=== PATIENT | male | born 1960 | race Caucasian/White ===

== ENCOUNTER 2019-12-15 18:24 | Emergency (ER) | payer BC ==
--- NOTE | 2019-12-15 18:39 | Emergency Department Report ---
Blank Doc - Documentation Documentation: 59-year-old male that presents with chest pain and SOB. This initial assessment/diagnostic orders/clinical plan/treatment(s) is/are subject to change based on patient's health status, clinical progression and re- assessment by fellow clinical providers in the ED. Further treatment and workup at subsequent clinical providers discretion. Patient/guardians urged not to elope from the ED as their condition may be serious if not clinically assessed and managed. Initial orders include: 1- Patient sent to MAIN ED for further evaluation and treatment 2- cardiac workup
[2019-12-15 19:02] LABS: Basophils % (Auto) 0.9 % (0.0-1.8); Eosinophils % (Auto) 0.4 % (0.0-4.3); Hematocrit 49.5 % (35.5-45.6); Hemoglobin 17.3 gm/dl (11.8-15.2); Lymphocytes # (Auto) 1.5 K/mm3 (1.2-5.4); Lymphocytes % (Auto) 27.1 % (13.4-35.0); Mean Corpuscular HGB Conc 35 % (32-34); Mean Corpuscular Volume 85 fl (84-94); Monocytes # (Auto) 0.7 K/mm3 (0.0-0.8); Monocytes % (Auto) 13.3 % (0.0-7.3); Platelet Count 254 K/mm3 (140-440); Red Blood Count 5.82 M/mm3 (3.65-5.03); Red Cell Distribution Width 12.5 % (13.2-15.2)
[2019-12-15 19:10] LABS: INR 1.02 (0.87-1.13)
[2019-12-15 19:11] LABS: Partial Thromboplastin Time 26.9 Sec. (24.2-36.6)
[2019-12-15 19:25] LABS: Alanine Aminotransferase 18 units/L (7-56); Albumin 4.9 g/dL (3.9-5); BUN/Creatinine Ratio 20; Blood Urea Nitrogen 18 mg/dL (9-20); Calcium 10.2 mg/dL (8.4-10.2); Hemolysis Index 6
--- NOTE | 2019-12-15 20:45 | XRay Report ---
CHEST 2 VIEWS INDICATION / CLINICAL INFORMATION: MAIN: Chest Pain; Pt presents with c/o midsternal CP with associated SOB x 2 days. . COMPARISON: 04/18/2009 FINDINGS: SUPPORT DEVICES: None. HEART / MEDIASTINUM: No significant abnormality. LUNGS / PLEURA: No significant pulmonary or pleural abnormality. No pneumothorax. ADDITIONAL FINDINGS: No significant additional findings. IMPRESSION: 1. No acute findings. Signer Name: Jhoan Mueller MD Signed: 12/15/2019 8:41 PM Workstation Name: [id number]
--- NOTE | 2019-12-15 22:52 | Emergency Department Report ---
ED Chest Pain HPI - General Chief Complaint: Chest Pain Stated Complaint: TIGHNESS IN CHEST Time Seen by Provider: 12/15/19 18:38 Source: patient Mode of arrival: Ambulatory Limitations: No Limitations - History of Present Illness Initial Comments: Patient is a 59-year-old male that presents emergency room with complaints of chest pain or shortness of breath. Patient states the chest pain or shortness of breath have been going on for 2 days. Patient states that the chest pain and shortness of breath are better with rest. Patient states that the chest pain is a chest tightness. Patient states the chest pain, tightness is worse with palpation, deep breath. Patient states his shortness of breath is worse with exertion. Patient states he has a long history of anxiety and been having many panic attacks. Patient states that he is also having palpitations and tachycardia. Patient states his symptoms are worsening. Patient denies fever and chills. Patient denies recent travel. Patient denies travel outside [facility]. Patient denies contact with anybody who is travel outside [facility]. Patient denies contact with anybody who is ill. Patient denies any by person that has come in contact with covid-19. Patient denies any respiratory symptoms. Patient denies cough. MD Complaint: chest pain -: Sudden Onset: during rest Pain Location: substernal, left chest Pain Radiation: none Severity: moderate Severity scale (0 -10): 5 Quality: tightness Consistency: constant Improves With: rest Worsens With: exertion, inspiration, palpation, movement re: dyspnea, sense of impending doom. denies: nausea, vomting, diaphoresis Other Symptoms: palpitations. denies: cough, fever, syncope, rash, acid taste i n mouth, leg swelling, burping Treatments Prior to Arrival: none Aspirin use within the Past 7 Days: (0) No - Related Data On Oral Contraceptives: No Previous Rx's Medication Instructions Recorded Last Taken Type ALPRAZolam [Xanax TAB] 0.25 mg PO Q6HR PRN #10 tab 12/16/19 Unknown Rx Allergies Allergy/AdvReac Type Severity Reaction Status Date / Time No Known Allergies Allergy Unverified 12/15/19 18:38 Heart Score - HEART Score History: Slightly suspicious EKG: Normal Age: 45-65 Risk factors: No known risk factors Troponin: < normal limit HEART Score: 1 ED Review of Systems ROS: Stated complaint: TIGHNESS IN CHEST Other details as noted in HPI Constitutional: denies: chills, fever Eyes: denies: eye pain, eye discharge, vision change ENT: denies: ear pain, throat pain Respiratory: shortness of breath, SOB with exertion. denies: cough, wheezing Cardiovascular: chest pain, palpitations, dyspnea on exertion Endocrine: no symptoms reported Gastrointestinal: denies: abdominal pain, nausea, diarrhea Genitourinary: denies: urgency, dysuria Musculoskeletal: denies: back pain, joint swelling, arthralgia Skin: denies: rash, lesions Neurological: denies: headache, weakness, paresthesias Psychiatric: denies: anxiety, depression Hematological/Lymphatic: denies: easy bleeding, easy bruising ED Past Medical Hx - Past Medical History Previous Medical History?: Yes Hx Psychiatric Treatment: Yes (anxiety) - Surgical History Past Surgical History?: No - Family History Family history: no significant - Social History Smoking Status: Never Smoker Substance Use Type: None - Medications Home Medications: Home Medications Medication Instructions Recorded Confirmed Last Taken Type ALPRAZolam [Xanax TAB] 0.25 mg PO Q6HR PRN #10 tab 12/16/19 Unknown Rx ED Physical Exam - General Limitations: No Limitations General appearance: alert, in no apparent distress - Head Head exam: Present: atraumatic, normocephalic - Eye Eye exam: Present: normal appearance - ENT ENT exam: Present: mucous membranes moist - Neck Neck exam: Present: normal inspection - Respiratory Respiratory exam: Present: normal lung sounds bilaterally, chest wall tenderness. Absent: respiratory distress, wheezes, rales - Cardiovascular Cardiovascular Exam: Present: regular rate, normal rhythm. Absent: systolic murmur, diastolic murmur, rubs, gallop - GI/Abdominal GI/Abdominal exam: Present: soft, normal bowel sounds - Rectal Rectal exam: Present: deferred - Extremities Exam Extremities exam: Present: normal inspection - Back Exam Back exam: Present: normal inspection - Neurological Exam Neurological exam: Present: alert, oriented X3 - Psychiatric Psychiatric exam: Present: normal affect, normal mood - Skin Skin exam: Present: warm, dry, intact, normal color. Absent: rash ED Course Vital Signs 12/15/19 12/15/19 12/15/19 18:37 22:01 22:16 Temperature 98.4 F Pulse Rate 74 129 H 70 Respiratory 18 18 Rate Blood Pressure 147/103 150/96 O2 Sat by Pulse 99 Oximetry 12/15/19 12/15/19 12/15/19 22:30 22:46 23:00 Temperature Pulse Rate 71 76 67 Respiratory 21 22 18 Rate Blood Pressure 150/96 150/96 150/96 O2 Sat by Pulse Oximetry 12/15/19 23:16 Temperature Pulse Rate 67 Respiratory 16 Rate Blood Pressure 155/101 O2 Sat by Pulse Oximetry - Reevaluation(s) Reevaluation #1: I discussed all results and clinical findings with patient. I discussed plan of care with patient. Patient agrees with plan of care. Patient is stable for discharge. Patient will be discharged home. Patient given discharge instructions. Patient voiced understanding of discharge instructions. Since the patient is low risk the patient can have further heart evaluation at our local cardiology office. Patient information faxed over to the local paleologist office, [facility]. 12/16/19 00:35 FIDENCIO score - Fidencio Score Age > 65: (0) No Aspirin use within the Past 7 Days: (0) No 3 or more CAD Risk Factors: (0) No 2 or more Angina events in past 24 hrs: (0) No Known CAD with more than 50% Stenosis: (0) No Elevated Cardiac Markers: (0) No ST Deviation Greater than 0.5mm: (0) No FIDENCIO Score: 0 ED Medical Decision Making - Lab Data Result diagrams: 12/15/19 18:48 12/15/19 18:48 - EKG Data -: EKG Interpreted by Me EKG shows normal: sinus rhythm, axis, intervals, QRS complexes (Incomplete right bundle branch block.), ST-T waves Rate: normal - EKG Data Interpretation: other - Radiology Data Radiology results: report reviewed, image reviewed interpreted by me: No acute findings on chest x-ray. CTA CHEST WITH IV CONTRAST INDICATION / CLINICAL INFORMATION: P.E. PROTOCOL!!! Pt complains of chest pain with S.O.B. Omnipaque 350 / 100ml's was used for this exam.. TECHNIQUE: Axial CT images were obtained through the chest after injection of IV contrast. 3 plane MIP and/or 3D reconstructions were produced. All CT scans at this location are performed using CT dose reducti on for ALARA by means of automated exposure control. COMPARISON: None available. FINDINGS: PULMONARY ARTERIES: No pulmonary emboli. THORACIC AORTA: No significant abnormality. HEART: No significant abnormality. CORONARY ARTERIES: No significant calcification. PLEURA: No pleural effusion. No pneumothorax. LYMPH NODES: No significant adenopathy. LUNGS: No acute air space or interstitial disease. ADDITIONAL FINDINGS: None. UPPER ABDOMEN: No acute findings. SKELETAL STRUCTURES: No significant osseous abnormality. IMPRESSION: 1. No CT evidence for pulmonary embolism. 2. No acute findings. - Medical Decision Making Patient is a 59-year-old male that presents emergency room with complaints of shortness of breath, chest pain, tachycardia, palpitations. Patient's symptoms appear to be secondary to anxiety. Patient had a complete cardiac work-up as well as a CTA. Patient's labs are unremarkable. Patient's troponins were negative. Patient's EKG is negative for acute findings. Patient's chest x-ray is negative for acute findings. Patient CTA is negative for a PE. Patient's clinical findings are consistent with chest pain, shortness of breath and secondary to anxiety. Patient chest pain is low risk and can be worked up as an outpatient with his primary care and a local paleologist. Patient for patient sent over to our local cardiology group. - Differential Diagnosis Chest pain, shortness of breath, anxiety, KINSEY, palpitations. Critical care attestation.: If time is entered above; I have spent that time in minutes in the direct care of this critically ill patient, excluding procedure time. ED Disposition Clinical Impression: SOB (shortness of breath), KINSEY (dyspnea on exertion), Anxiety, Tachycardia, Heart palpitations Chest pain Qualifiers: Chest pain type: unspecified Qualified Code(s): R07.9 - Chest pain, unspecified Disposition: DC-01 TO HOME OR SELFCARE Is pt being admited?: No Does the pt Need Aspirin: No Condition: Stable Instructions: Chest Pain (ED), Costochondritis (ED), Anxiety (ED), Social Anxiety Disorder (ED), Generalized Anxiety Disorder (ED) Additional Instructions: Patient to follow-up with primary care in 2 to 3 days. Patient to follow-up with paleologist in 2 to 3 days. Patient to follow-up with a psychiatrist in 2 to 3 days. Patient to rest. Patient to increase water. Patient to avoid strenuous exercise or heavy lifting until cleared by paleologist. Patient to take Tylenol or ibuprofen as needed for pain. Patient to take meds as directed. Patient to return to the ER if condition worsens, changes or new symptoms arise . Prescriptions: ALPRAZolam [Xanax TAB] 0.25 mg PO Q6HR PRN #10 tab PRN Reason: Anxiety Referrals: PRIMARY CARE, [Primary Care Provider] - 2-3 Days PADMA BONDS MD [Staff Physician] - 2-3 Days Time of Disposition: 00:35
--- NOTE | 2019-12-16 00:28 | Cat Scan Report ---
CTA CHEST WITH IV CONTRAST INDICATION / CLINICAL INFORMATION: P.E. PROTOCOL!!! Pt complains of chest pain with S.O.B. Omnipaque 350 / 100ml's was used for this exa m.. TECHNIQUE: Axial CT images were obtained through the chest after injection of IV contrast. 3 plane MIP and/or 3D reconstructions were produced. All CT scans at this location are performed using CT dose reduction f or ALARA by means of automated exposure control. COMPARISON: None available. FINDINGS: PULMONARY ARTERIES: No pulmonary emboli. THORACIC AORTA: No significant abnormality. HEART: No significant abnormality. CORONARY ARTERIES: No significant calcification. PLEURA: No pleural effusion. No pneumothorax. LYMPH NODES: No significant adenopathy. LUNGS: No acute air space or interstitial disease. ADDITIONAL FINDINGS: None. UPPER ABDOMEN: No acute findings. SKELETAL STRUCTURES: No significant osseous abnormality. IMPRESSION: 1. No CT evidence for pulmonary embolism. 2. No acute findings. Signer Name: Sanford Saez MD Signed: 12/16/2019 12:24 AM Workstation Name: [id number]
[2019-12-16 00:39] VITALS: BP 131/92
== END 2019-12-16 00:45 | disposition home or self-care (01) ==
LOC: ED 18:24
DX: R07.89 Other chest pain (principal); R00.2 Palpitations; R06.00 Dyspnea, unspecified; F41.9 Anxiety disorder, unspecified
CPT/HCPCS: 36415; 71046; 71275; 80053; 84484; 85025; 85610; 85730; 93005; 93010; 99284; Q9967